=== PATIENT | male | born 1960 | race Caucasian/White ===

== ENCOUNTER 2019-04-13 08:06 | Day surgery (SDC) | payer OTHER ==
[~2019-04-13] VITALS: Ht 177.8 cm; Wt 99.8 kg
[2019-04-13] MEDS ORDERED: ceFAZolin 1,000 MG VIAL ONE (10:34)
[2019-04-13] MEDS ORDERED: BUPIVACAINE-MPF/EPI 0.25% 30 ML VIAL INJ ONE (10:34)
[2019-04-13] MEDS ORDERED: DESFLURANE 240 ML BTL INH ONE (10:52)
[2019-04-13] MEDS ORDERED: PROPOFOL 200 MG/20 ML VIAL IV ONE (10:52)
[2019-04-13] MEDS ORDERED: GLYCOPYRROLATE 0.2 MG/ML VIAL ONE (10:52)
[2019-04-13] MEDS ORDERED: ONDANSETRON 4 MG/2 ML VIAL ONE (10:52)
[2019-04-13] MEDS ORDERED: ROCURONIUM 50 MG/5 ML VIAL IV ONE (10:52)
[2019-04-13] MEDS ORDERED: LIDOCAINE 2% 100 MG/5 ML SYR IVP ONE (10:52)
[2019-04-13] MEDS ORDERED: ePHEDrine 50 MG/ML VIAL ONE (10:52)
[2019-04-13] MEDS ORDERED: DEXAMETHASONE 4 MG/ML VIAL ONE (10:52)
[2019-04-13] MEDS ORDERED: KETOROLAC 30 MG/ML VIAL ONE (10:52)
[2019-04-13] MEDS ORDERED: SUCCINYLCHOLINE CHLORIDE 200 MG/10 ML VIAL IVP ONE (10:52)
[2019-04-13] MEDS ORDERED: NEOSTIGMINE 1:1000 10 MG/10 ML VIAL ONE (10:52)
[2019-04-13] MEDS ORDERED: MIDAZOLAM 2 MG/2 ML VIAL ONE (11:07)
[2019-04-13] MEDS ORDERED: fentaNYL 0.05 MG/ML VIAL ONE (11:08)
[2019-04-13] MEDS ORDERED: ONDANSETRON 4 MG/2 ML VIAL IVP PRN (11:20)
[2019-04-13] MEDS ORDERED: HYDROmorphone 1 MG/ML AMP IVP PRN (11:20)
== END 2019-04-13 13:40 | disposition home or self-care (01) ==
LOC: MMU 08:06 → MDS 08:06
PROVIDERS: ATTEND Surgery
DX: K43.9 Ventral hernia without obstruction or gangrene (principal); K42.9 Umbilical hernia without obstruction or gangrene; I10 Essential (primary) hypertension; F17.210 Nicotine dependence, cigarettes, uncomplicated; E66.9 Obesity, unspecified; Z98.890 Other specified postprocedural states; Z68.31 Body mass index [BMI] 31.0-31.9, adult
CPT/HCPCS: 49560; 49568; 49585; 71045; 93005; C1781; J0330; J0690; J1100; J1885; J2001; J2250; J2405; J2704; J2710; J3010; J3490; J7060; J7120

== ENCOUNTER 2023-07-27 14:46 | Emergency (ER) | payer OTHER ==
[~2023-07-27] VITALS: Ht 180.3 cm; Wt 86.2 kg
[2023-07-27 15:04] VITALS: BP 159/110; PULSE 82; RESP 18; TEMP 97.3; O2SAT 94
[2023-07-27 15:32] VITALS: BP 143/87; PULSE 83; RESP 18; TEMP 97.8; O2SAT 98
== END 2023-07-27 15:34 | disposition home or self-care (01) ==
LOC: MED 14:46
DX: M25.512 Pain in left shoulder (principal)
CPT/HCPCS: 99281